=== PATIENT | female | born 1960 | race Caucasian/White ===

== ENCOUNTER 2018-06-18 17:10 | Emergency (ER) | payer BC ==
[2018-06-18 17:37] VITALS: BP 135/55
--- NOTE | 2018-06-18 18:36 | RAD ---
INDICATION: Radial LEFT wrist pain following injury 2 weeks ago. Remote fracture. COMPARISON: No relevant prior exams available on the [facility] for comparison. TECHNIQUE: AP, lateral, and oblique views LEFT wrist. REPORT: Negative for fracture or malalignment. Mild osteophytosis and subchondral sclerosis at the scaphoid trapezium articulation. Mild nonfocal soft tissue swelling. IMPRESSION: #. Negative for fracture or dislocation. #. Mild osteoarthritis.
--- NOTE | 2018-06-18 18:55 | UC ---
Hand/Wrist HPI - HPI Summary HPI Summary: 58 yo female with left wrist pain injury 2 weeks ago CLARISSA fx of wrist as teen - History Of Current Complaint Chief Complaint: UCUpperExtremity Stated Complaint: LT WRIST Time Seen by Provider: 06/18/18 17:39 Hx Obtained From: Patient Hx Last Menstrual Period: unknown Onset/Duration: Sudden Onset, Lasting Weeks Severity Initially: Severe Severity Currently: Severe Pain Intensity: 8 Pain Scale Used: 0-10 Numeric Character Of Pain: Aching, Throbbing, Spasmodic Aggravating Factor(s): Movement, Lifting Alleviating Factor(s): Nothing Related History: Dominant Hand Right - Allergies/Home Medications Allergies/Adverse Reactions: Allergies Allergy/AdvReac Type Severity Reaction Status Date / Time codeine Allergy Unknown MAKES HER Verified 06/18/18 17:28 DISOREINED AND NOT HER USUAL SELF Penicillins Allergy Unknown Rash And Verified 06/18/18 17:28 Itching cortisone AdvReac Agitation Verified 06/18/18 17:28 Home Medications: Home Medications Ibuprofen TAB* [Motrin TAB* 400 MG] 400 mg PO Q6H PRN 06/18/18 [History Confirmed 06/18/18] PMH/Surg Hx/FS Hx/Imm Hx Previously Healthy: Yes - Surgical History Surgical History: Yes Surgery Procedure, Year, and Place: appy as a kid. carpal tunnel in late . TA as a child. csection x2 1992 and 94 - Family History Known Family History: Positive: Hypertension - Social History Alcohol Use: Occasionally Substance Use Type: None Smoking Status (MU): Never Smoked Tobacco Review of Systems Constitutional: Negative Skin: Negative Eyes: Negative ENT: Negative Respiratory: Negative Cardiovascular: Negative Gastrointestinal: Negative Genitourinary: Negative Motor: Negative Neurovascular: Negative Musculoskeletal: Arthralgia Neurological: Negative Psychological: Negative Is Patient Immunocompromised?: No All Other Systems Reviewed And Are Negative: Yes Physical Exam Triage Information Reviewed: Yes Appearance: Well-Appearing, No Pain Distress, Well-Nourished Vital Signs: Initial Vital Signs Temp 99 F 06/18/18 17:30 Pulse 74 06/18/18 17:30 Resp 18 06/18/18 17:30 BP 135/55 06/18/18 17:30 Pulse Ox 100 06/18/18 17:30 Vital Signs Reviewed: Yes Eyes: Positive: Conjunctiva Clear ENT: Positive: Hearing grossly normal. Negative: Nasal congestion, Nasal drainage, Trismus, Muffled voice, Hoarse voice Neck: Positive: Supple, Nontender, No Lymphadenopathy Respiratory: Positive: Lungs clear, Normal breath sounds, No respiratory distress, No accessory muscle use Cardiovascular: Positive: RRR, No Murmur Musculoskeletal: Positive: ROM Limited @ - left wrist/tender distal radius and snuff box Neurological: Positive: Alert Psychological Exam: Normal Skin Exam: Normal Diagnostics - Radiology No standard instances Xray Interpretation: No Acute Changes Radiology Interpretation Completed By: Radiologist Hand/Wrist Course/Dx - Differential Dx/Diagnosis Provider Diagnoses: left wrist sprain. ? occult fx vs ligament tear vs other Discharge - Sign-Out/Discharge Documenting (check all that apply): Patient Departure - Discharge Plan Condition: Stable Disposition: HOME Patient Education Materials: Wrist Sprain (ED) Referrals: Volodymyr Wang MD [Medical Doctor] - As Soon As Possible Additional Instructions: thumb spica splint elevate tylenol or advil for pain I suggest you see an orthopedist in follow up since your symptoms have not improved after 2 weeks you may need further imaging to rule out an occult fracture or ligament injury - Billing Disposition and Condition Condition: STABLE Disposition: Home
== END 2018-06-18 18:55 | disposition home or self-care (01) ==
LOC: UCCORT 17:10
DX: S63.502A Unspecified sprain of left wrist, initial encounter (principal); W18.30XA Fall on same level, unspecified, initial encounter; Y93.9 Activity, unspecified; Y99.9 Unspecified external cause status; Z88.5 Allergy status to narcotic agent; Z88.0 Allergy status to penicillin
CPT/HCPCS: 99212; G0463

== ENCOUNTER 2019-03-04 10:49 | Emergency (ER) | payer BC ==
[2019-03-04 11:58] VITALS: BP 141/82
[2019-03-04] MEDS ORDERED: Albuterol/Ipratropium NEB.SOL* Albuterol 2.5 MG/Ipratropium 0.5 MG 3 ML INH ONE (12:02)
--- NOTE | 2019-03-04 12:06 | UC ---
Respiratory Complaint HPI - HPI Summary HPI Summary: Patient has had a cold for 3 days, hx of seasonal allergies, is having a hard time taking deep breaths and has rib pain with breathing - History of Current Complaint Chief Complaint: UCRespiratory Stated Complaint: CONGESTION Time Seen by Provider: 03/04/19 11:57 Hx Obtained From: Patient Hx Last Menstrual Period: unknown ?: No Onset/Duration: Sudden Onset, Lasting Days Timing: Constant Severity Initially: Mild Severity Currently: Moderate Pain Intensity: 0 Character: Cough: Nonproductive Aggravating Factors: Allergens, Exertion, Deep Breaths Alleviating Factors: Nothing Associated Signs And Symptoms: Positive: Wheezing, URI - Allergies/Home Medications Allergies/Adverse Reactions: Allergies Allergy/AdvReac Type Severity Reaction Status Date / Time codeine Allergy Unknown MAKES HER Verified 03/04/19 11:54 DISOREINED AND NOT HER USUAL SELF Penicillins Allergy Unknown Rash And Verified 03/04/19 11:54 Itching cortisone AdvReac Agitation Verified 03/04/19 11:54 Home Medications: Home Medications Blood Pressure Med 1 dose PO DAILY 03/04/19 [History Confirmed 03/04/19] Fexofenadine/Pseudoephedrine [Amalia-D 24 Hour Tablet] 1 each PO DAILY [History Confirmed 03/04/19] Potassium Chlor TAB* [Klor Con ER TAB*] 10 meq PO SEE INSTRUCTIONS 03/04/19 [ History Confirmed 03/04/19] PMH/Surg Hx/FS Hx/Imm Hx Previously Healthy: Yes - Surgical History Surgical History: Yes Surgery Procedure, Year, and Place: appy as a kid. carpal tunnel in late . TA as a child. csection x2 1992 and - Family History Known Family History: Positive: Hypertension - Social History Alcohol Use: Occasionally Substance Use Type: None Smoking Status (MU): Never Smoked Tobacco Review of Systems All Other Systems Reviewed And Are Negative: Yes Constitutional: Positive: Negative Skin: Positive: Negative Eyes: Positive: Negative ENT: Positive: Sore Throat, Nasal Discharge, Sinus Congestion Respiratory: Positive: Shortness Of Breath, Cough Cardiovascular: Positive: Negative Gastrointestinal: Positive: Negative Genitourinary: Positive: Negative Motor: Positive: Negative Neurovascular: Positive: Negative Musculoskeletal: Positive: Negative Neurological: Positive: Negative Psychological: Positive: Negative Is Patient Immunocompromised?: No Physical Exam Triage Information Reviewed: Yes Appearance: Well-Nourished, Ill-Appearing, Pain Distress Vital Signs: Initial Vital Signs Temp 98.5 F 03/04/19 11:52 Pulse 78 03/04/19 11:52 Resp 18 03/04/19 11:52 BP 141/82 03/04/19 11:52 Pulse Ox 95 03/04/19 11:52 Vital Signs Reviewed: Yes Eye Exam: Normal ENT: Positive: Pharyngeal erythema, TM bulging Dental Exam: Normal Neck exam: Normal Respiratory Exam: Normal Respiratory: Positive: Chest non-tender, Lungs clear, No respiratory distress - mild Cardiovascular Exam: Normal Cardiovascular: Positive: RRR, No Murmur, Pulses Normal Bowel Sounds: Positive: Present Musculoskeletal Exam: Normal Neurological Exam: Normal Psychological Exam: Normal Skin Exam: Normal Respiratory Course/Dx - Course Course Of Treatment: hx obtained, exam performed ,meds reviewed, duo neb given - Differential Dx/Diagnosis Differential Diagnosis/HQI/PQRI: Asthma, Bronchitis, Sinusitis Provider Diagnosis: Allergic bronchitis Discharge - Sign-Out/Discharge Documenting (check all that apply): Patient Departure All imaging exams completed and their final reports reviewed: No Studies - Discharge Plan Condition: Stable Disposition: HOME Prescriptions: Albuterol 2.5MG/3ML (0.083%)* [Ventolin 2.5 MG/3 ML NEB.MAKSIM*] 2.5 mg INH Q6H # 50 vial predniSONE [Prednisone 20 MG TAB] 40 mg PO DAILY #14 tablet Patient Education Materials: Allergies (ED), Acute Bronchitis (ED) Referrals: Jeannie Blank PA [Primary Care Provider] - Additional Instructions: 1. use the nebulizer 3 times a day for the next few days then as needed. 2. Take the predinsone as prescribed. 3. FOllow up as needed, continue with the allergy medication - Billing Disposition and Condition Condition: STABLE Disposition: Home
== END 2019-03-04 12:41 | disposition home or self-care (01) ==
LOC: UCCORT 10:49
DX: J45.909 Unspecified asthma, uncomplicated (principal); Z88.5 Allergy status to narcotic agent; Z88.0 Allergy status to penicillin; Z88.8 Allergy status to other drugs, medicaments and biological substances
CPT/HCPCS: 99212; A9270-GY; G0463

== ENCOUNTER 2019-04-29 15:47 | Emergency (ER) | payer BC ==
[2019-04-29 16:03] VITALS: BP 129/71
--- NOTE | 2019-04-29 16:16 | UC ---
Throat Pain/Nasal William HPI - HPI Summary HPI Summary: 58 yo female with sinus issues due to LINDA x months Worse past 2 weeks with increased sinus pressure and pain as well as upper tooth sensitivity no CP OR SOB no f/c no n/v/d - History of Current Complaint Chief Complaint: UCGeneralIllness Stated Complaint: SINUSES Time Seen by Provider: 04/29/19 16:05 Hx Obtained From: Patient Hx Last Menstrual Period: unknown Onset/Duration: Sudden Onset Severity: Severe Pain Intensity: 8 Pain Scale Used: 0-10 Numeric Cough: Productive Associated Signs & Symptoms: Positive: Sinus Discomfort, Nasal Discharge Related History: Seasonal Allergies - Epiglottits Risk Factors Epiglottis Risk Factors: Negative - Allergies/Home Medications Allergies/Adverse Reactions: Allergies Allergy/AdvReac Type Severity Reaction Status Date / Time codeine Allergy Unknown MAKES HER Verified 03/04/19 11:54 DISOREINED AND NOT HER USUAL SELF Penicillins Allergy Unknown Rash And Verified 03/04/19 11:54 Itching cortisone AdvReac Agitation Verified 03/04/19 11:54 PMH/Surg Hx/FS Hx/Imm Hx Previously Healthy: Yes Cardiovascular History: Hypertension Respiratory History: Asthma - Surgical History Surgical History: Yes Surgery Procedure, Year, and Place: appy as a kid. carpal tunnel in late . TA as a child. csection x2 1992 and - Family History Known Family History: Positive: Hypertension - Social History Alcohol Use: None Substance Use Type: None Smoking Status (MU): Never Smoked Tobacco Review of Systems All Other Systems Reviewed And Are Negative: Yes Constitutional: Positive: Fatigue Skin: Positive: Negative Eyes: Positive: Negative ENT: Positive: Dental Pain, Ear Ache, Nasal Discharge, Sinus Congestion, Sinus Pain/Tenderness Respiratory: Positive: Cough Cardiovascular: Positive: Negative Gastrointestinal: Positive: Negative Genitourinary: Positive: Negative Motor: Positive: Negative Neurovascular: Positive: Negative Musculoskeletal: Positive: Negative Neurological: Positive: Negative Psychological: Positive: Negative Physical Exam Triage Information Reviewed: Yes Appearance: Well-Appearing, No Pain Distress, Well-Nourished Vital Signs: Initial Vital Signs Temp 98.5 F 04/29/19 15:55 Pulse 88 04/29/19 15:55 Resp 18 04/29/19 15:55 BP 129/71 04/29/19 15:55 Pulse Ox 98 04/29/19 15:55 Vital Signs Reviewed: Yes Eyes: Positive: Conjunctiva Clear ENT: Positive: Hearing grossly normal, Pharynx normal, Nasal congestion, Nasal drainage, Sinus tenderness, Uvula midline. Negative: Trismus, Muffled voice, Hoarse voice, Dental tenderness Dental Exam: Normal Neck: Positive: Supple, Nontender, No Lymphadenopathy Respiratory: Positive: Lungs clear, Normal breath sounds, No respiratory distress, No accessory muscle use Cardiovascular: Positive: RRR, No Murmur Musculoskeletal: Positive: ROM Intact, No Edema Neurological: Positive: Alert Psychological Exam: Normal Skin Exam: Normal Throat Pain/Nasal Course/Dx - Differential Dx/Diagnosis Provider Diagnosis: Sinusitis, acute Discharge - Sign-Out/Discharge Documenting (check all that apply): Patient Departure All imaging exams completed and their final reports reviewed: No Studies - Discharge Plan Condition: Stable Disposition: HOME Prescriptions: DOXYcycline CAP(*) [DOXYcycline 100MG CAP(*)] 100 mg PO BID #14 cap Patient Education Materials: Sinusitis (ED), Warm Compress or Soak (ED) Print Language: FAROESE Referrals: Jeannie Blank PA [Primary Care Provider] - 5 Days (if nto better) - Billing Disposition and Condition Condition: STABLE Disposition: Home
== END 2019-04-29 16:22 | disposition home or self-care (01) ==
LOC: UCCORT 15:47
DX: J01.90 Acute sinusitis, unspecified (principal); I10 Essential (primary) hypertension; J45.909 Unspecified asthma, uncomplicated; Z88.5 Allergy status to narcotic agent; Z88.0 Allergy status to penicillin; Z88.8 Allergy status to other drugs, medicaments and biological substances
CPT/HCPCS: 99212; G0463